=== PATIENT | male | born 1955 | race Caucasian/White ===

== ENCOUNTER 2017-11-01 08:14 | Day surgery (SDC) | payer OTHER ==
[~2017-11-01] VITALS: Ht 179.1 cm; Wt 102.5 kg
[~2017-11-01 08:14] MED LIST: AMLODIPINE BESY10 MG PO; BENAZEPRIL HCL40 MG PO; CIALIS5 MG PO; DICYCLOMINE HCL20 MG PO; ELIQUIS5 MG PO; METOPROLOL SUCC25 MG PO; MULTAQ400 MG PO; OMEPRAZOLE20 M2 PO; SAW PALMETTO450 MG PO
== END 2017-11-01 10:41 | disposition home or self-care (01) ==
LOC: CATH 08:14
PROC: 5A2204Z Restoration of Cardiac Rhythm, Single (ICD-10-PCS; principal; 2017-11-01)
DX: I48.0 Paroxysmal atrial fibrillation (principal); I10 Essential (primary) hypertension; K21.9 Gastro-esophageal reflux disease without esophagitis; Z79.01 Long term (current) use of anticoagulants; Z87.891 Personal history of nicotine dependence; Z85.828 Personal history of other malignant neoplasm of skin
CPT/HCPCS: 93005; J2250; J3010